=== PATIENT | female | born 1995 | race Caucasian/White ===

== ENCOUNTER 2021-08-12 13:23 | Emergency (ER) | payer OTHER ==
[~2021-08-12 13:23] MED LIST: BENTYL 10MG CAP10 MG PO; ZOFRAN ODT4 MG PO; ZOFRAN4 MG PO
[2021-08-12 14:12] LABS: HEMOGLOBIN 12.9 gm/dl (12.3-15.3); RED BLOOD COUNT 4.8 M/UL (4.00-5.10); WHITE BLOOD COUNT 7.7 K/UL (4.5-11.0)
[2021-08-12 15:11] LABS: BUN/CREATININE RATIO 17 (0-10)
[2021-08-12] MEDS ORDERED: PHENERGAN 25 MG25 M1 PO (15:24)
== END 2021-08-12 15:40 | disposition home or self-care (01) ==
LOC: ER1 13:23
PROVIDERS: Student in an Organized Health Care Education/Training Program
DX: R11.2 Nausea with vomiting, unspecified (principal); E11.9 Type 2 diabetes mellitus without complications; Z79.84 Long term (current) use of oral hypoglycemic drugs; Z79.899 Other long term (current) drug therapy
CPT/HCPCS: 80048; 84702; 85025; 86900; 86901; 99284

== ENCOUNTER 2021-10-12 08:16 | Emergency (ER) | payer OTHER ==
[~2021-10-12 08:16] MED LIST changes: +PHENERGAN 25 MG25 M1 PO
== END 2021-10-12 11:53 | disposition left against medical advice (07) ==
LOC: ER1 08:16
DX: Z53.21 Procedure and treatment not carried out due to patient leaving prior to being seen by health care provider (principal)

== ENCOUNTER → 2021-12-02 | Outpatient (CLI) | payer OTHER | LOC: LAB 11:13 | DX: Z32.00 Encounter for pregnancy test, result unknown (principal) | CPT/HCPCS: 36415; 84702 ==

== ENCOUNTER → 2022-06-02 | Outpatient (CLI) | payer OTHER | LOC: RAD 15:40 | DX: S69.90XA Unspecified injury of unspecified wrist, hand and finger(s), initial encounter (principal); T14.8XXA Other injury of unspecified body region, initial encounter | CPT/HCPCS: 73130 ==